=== PATIENT | female | born 1955 | race Caucasian/White ===

== ENCOUNTER 2019-02-11 10:30 | Outpatient (RCR) | payer OTHER, SELFPAY ==
--- NOTE | 2019-01-23 14:11 | HP.OTEVAL_ITS ---
Patient's Visit Information SEAN SIMEON is a 64 year old F, referred to Occupational Therapy by ED KEANE, with a diagnosis of Dislocation R Ring Finger. Date of Evaluation: 01/21/19 Occupational Therapist: Jenise Mendoza - Subjective Subjective: Pt seen for initial occupational therapy evaluation for dislocation R Ring finger that occured 01/11/19 when fell on hardwood floor and dislocated R RF PIP joint. Pt seen by [facility] Dr. Keane, provided order to guillermina tape R RF and start early AROM and PROM. Pt L hand dominent. Completes a lot of typing and plays guitar and piano for hobbies. Pt states piano is in storage for time being. Pt states has been guillermina taping hand daily. Pt indep with BADLs/IADLs. - Pain R Ring Finger 1 Pain Intensity Range: 0, 5 - Objective Objective/Observation: limited AROM R RF -8 RF, edema R RF - ROM ROM Comments: R MP 0/82' PIP -5/78' DIP 0/4'. L MP 0/86' PIP 0/105' DIP 0/40' - Strength Oil Paint Shader: R 30# L 72# Tripod Pinch: R 10#, L 11# - Edema Other: Slight Edema noted R RF - Sensation Sensation Comments: No numbness or tingling - Quick DASH-Disab of Arm,Shoulder& Hand Quick DASH Score: 15.9075 - Goals Goal:: Pt will progress w/ R RF PIP flexion 20' to assist with functional living tasks indep by d/c from OT services. Pt will progress w/ R RF PIP extension by 5' by d/c from OT services Goal:: Pt will demo no pain greater than 0/10 R RF w/ movement by d/c from OT services Goal:: Pt will be educated on tools/strategies to assist w/ edema control with good understanding and demo 100%x Goal:: Pt will be educated on R hand HEP with good understanding and demo 100%x - Rehabilitation General Assessment: Pt demo increased edema R RF, increased pain with movement of R RF and limited AROM R RF and strength of R hand. Pt would benefit from direct occupational therapy servcies to increase R RF ROM, decrease edema, decrease pain and increase strength when appropriate to increase pts ability to return to PLOF. Rehabilitation Potential: Excellent - Anticipated Interventions Anticipated Interventions: A/AAROM/PROM, Strengthening, Edema Control, Modalities, Orthoses, Joint Protection/Energy Conservation, Fine Motor Coord/Jorje, ADL Training, Education re Diagnosis, Education re Self-Bandaging Techniques, Education re Correct Donning Tech,Care&Wearing Sched Comp Garments, Home Program - Visit Plan Frequency: 1-2x /Week Duration: 4 Weeks General Plan: increase ROM R RF, decreased edema, educate on R UE HEP, decrease pain TEXT: Thank you for the opportunity to evaluate your patient. For Medicare and Medicare HMO plans, please review the plan of care and approve it. It will need to be FAXED BACK to us at [phone] for Medicare purposes. Please let me know if there are questions or concerns regarding this plan of care. Physician Signature:____ Date:
--- NOTE | 2019-07-16 14:12 | HP.OT.NRP ---
HP - Discharge Summary - Patient Information SEAN SIMEON was seen in my office for initial evaluation on 01/21/19. The following Plan of Care was established for this patient: Initial Frequency: 1-2x /Week Initial Duration: 4 Weeks Plan: cont w/ prior POC - Anticipated Interventions Anticipated Interventions: A/AAROM/PROM, Strengthening, Edema Control, Modalities, Orthoses, Joint Protection/Energy Conservation, Fine Motor Coord/Jorje, ADL Training, Education re Diagnosis, Education re Self-Bandaging Techniques, Education re Correct Donning Tech,Care&Wearing Sched Comp Garments, Home Program This patient was last seen in our office 02/11/19. Pertinent comments regarding their Occupational therapy will appear below: Pt last seen for dislocation R IF. Pt doing well and no return to OT. D/C OT POC At this point I will be discontinuing this patient from occupational therapy. I would be happy to see this patient again in the future if found appropriate by the physician. Thank you! Jenise Mendoza
== END 2019-02-11 19:00 | disposition home or self-care (01) ==
LOC: OT 10:30
DX: S63.279D Dislocation of unspecified interphalangeal joint of unspecified finger, subsequent encounter (principal)
CPT/HCPCS: 97035; 97110; 97165; 97166; 97530; 97760

== ENCOUNTER → 2020-05-07 | Outpatient (CLI) | payer OTHER, SELFPAY ==
[2020-05-07 15:18] LABS: Absolute Lymphocyte Count 2.85 X10^3/uL (0.83-4.51); Absolute Neutrophil Count 3.2 X10^3/uL (2.0-7.7); Basophil# 0.06 X10^3/uL; Basophil% 0.9 % (0-1); Eosinophil# 0.26 X10^3/uL; Eosinophils% 3.9 % (0-5); Hematocrit 41.1 % (37-47); Hemoglobin 12.5 g/dL (12.0-15.0); Lymphocyte # 2.85 X10^3/ul (4.0); Lymphocyte % 42.2 % (19-41); Mean Corp Hgb Conc 30.4 g/dL (32-36); Mean Corpuscular Hgb 28.5 pg (27.0-32.0); Mean Corpuscular Volume 93.6 fL (81-99); Mean Platelet Vol. 11.2 fl (6.2-12.0); Monocyte# 0.42 X10^3/uL; Monocyte% 6.2 % (0-10); NRBC Flagged by Analyzer 0 % (0-5); Neutrophil # 3.15 X10^3/uL (2.7-7.7); Neutrophil % 46.7 % (47-70); Platelet Count 282 K/mm3 (150-450); Red Blood Count 4.39 M/mm3 (4.2-5.4); White Blood Count 6.8 K/mm3 (4.4-11.0)
[2020-05-07 16:02] LABS: ALB/GLOB Ratio 0.8 RATIO (0.9-2.4); AST(SGOT) 23 U/L (15-37); Alanine Aminotransfer ALT/SGPT 28 U/L (13-56); Albumin, Serum 3.4 g/dL (3.2-5.0); Alkaline Phosphatase 59 U/L (45-117); Anion Gap 2 (5-15); BUN 12 mg/dL (7-18); BUN/Creat Ratio 15.1 RATIO (10-20); Calcium,Total 8.8 mg/dL (8.5-10.1); Chloride 107 mmol/L (98-107); Creatinine, Serum 0.79 mg/dL (0.55-1.02); EST Glomerular Filtration Rate 77 mL/min (>60); Est Glom Filt Rate - Afr Amer 93 mL/min (>60); Ferritin 24 ng/mL (8-252); Globulin 4.2 g/dL (2.2-4.2); Glucose 85 mg/dL (74-106); Magnesium 2.2 mg/dL (1.6-2.6); Protein, Total 7.6 g/dL (6.4-8.2); Sodium Level 142 mmol/L (136-145)
== END | disposition home or self-care (01) ==
LOC: MTLAB 13:54
PROVIDERS: PCP Family Medicine; Referring Provider Family Medicine; Visit Provider Family Medicine
DX: M81.0 Age-related osteoporosis without current pathological fracture (principal); F43.29 Adjustment disorder with other symptoms; Z86.2 Personal history of diseases of the blood and blood-forming organs and certain disorders involving the immune mechanism
CPT/HCPCS: 36415; 80053; 82728; 83735; 85025

== ENCOUNTER → 2020-06-16 08:50 | Outpatient (CLI) | payer OTHER, SELFPAY ==
--- NOTE | 2020-06-16 08:58 | BD_ITS ---
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 COMPARISON: None. FINDINGS: Lumbar Spine (L1-L4): g/cm2 (1.027) / T-score (-1.2) / Z-score (0.4) Findings are suggestive of osteopenia with a low fracture risk. Left Femur Total: g/cm2 (0.733) / T-score (-2.2) / Z-score (-0.9) Left Femoral Neck: g/cm2 (0.695) / T-score (-2.5) / Z-score (-0.9) Right Femur Total: g/cm2 (0.700) / T-score (-2.4) / Z-score (-1.1) Right Femoral Neck: g/cm2 (0.664) / T-score (-2.7) / Z-score (-1.1) BD/Dexa Bone Density Study IMPRESSION: The patient is considered osteoporotic as outlined below according to World Pa Organization (WHO) criteria with a high fracture risk. Reference Information: The T-score is the number of standard deviations above or below the standard which is normal for young adults at their peak bone mineral density. The World Health Organization (WHO) interprets the T-scores as follows: Above -1 Normal bone density Between -1 and -2.5 Osteopenia Equal to / or below -2.5 Osteoporosis As a practical clinical guideline, osteopenia may be graded as follows: Mild -1 through -1.5 Moderate -1.6 through -2.0 Severe -2.1 through -2.4 The Z-score is the number of standard deviations above or below age-matched controls. A Z-score of less than -1.5 would be considered abnormal. References: 1. NIH Osteoporosis and Related Bone Diseases www osteo.org 2. International Society for Clinical Densitometry www iscd.org 3. National Osteoporosis Foundation www nof.org Electronically Signed: Herman Tirado, at 9:30 EST , Service support ,
== END ==
PROVIDERS: PCP Family Medicine; Referring Provider Family Medicine; Visit Provider Family Medicine
DX: M81.0 Age-related osteoporosis without current pathological fracture (principal)
CPT/HCPCS: 77080

== ENCOUNTER → 2021-03-04 | Outpatient (CLI) | payer OTHER, SELFPAY | END | disposition home or self-care (01) | LOC: MFPLAB 10:54 → LABSPEC 10:54 | PROVIDERS: PCP Family Medicine; Referring Provider Family Medicine; Visit Provider Family Medicine | DX: J06.9 Acute upper respiratory infection, unspecified (principal) | CPT/HCPCS: 87635; U0005; U0003 ==

== ENCOUNTER → 2023-06-05 | Outpatient (CLI) | payer BC, SELFPAY ==
[2023-06-05 08:23] LABS: Absolute Lymphocyte Count 3.42 X10^3/uL (0.83-4.51); Absolute Neutrophil Count 3.1 X10^3/uL (2.0-7.7); Basophil# 0.05 X10^3/uL; Basophil% 0.6 % (0-1); Eosinophil# 0.57 X10^3/uL; Eosinophils% 7.3 % (0-5); Hematocrit 36.3 % (37-47); Hemoglobin 11.1 g/dL (12.0-15.0); Lymphocyte # 3.42 X10^3/ul (0.83-4.51); Mean Corp Hgb Conc 30.6 g/dL (32-36); Mean Corpuscular Hgb 25.8 pg (27.0-32.0); Mean Corpuscular Volume 84.2 fL (81-99); Mean Platelet Vol. 10.8 fl (6.2-12.0); Monocyte# 0.62 X10^3/uL; NRBC Flagged by Analyzer 0 % (0-5); Neutrophil # 3.09 X10^3/uL (2.7-7.7); Neutrophil % 39.8 % (47-70); Platelet Count 319 K/mm3 (150-450); RBC Distribution Width CV 18.1 % (11.6-14.6); RBC Distribution Width SD 55.8 fl (35.1-43.9); Red Blood Count 4.31 M/mm3 (4.2-5.4); White Blood Count 7.8 K/mm3 (4.4-11.0)
[2023-06-05 08:59] LABS: ALB/GLOB Ratio 0.7 RATIO (0.9-2.4); AST(SGOT) 35 U/L (15-37); Alanine Aminotransfer ALT/SGPT 53 U/L (13-56); Albumin, Serum 3.1 g/dL (3.2-5.0); Alkaline Phosphatase 76 U/L (45-117); Anion Gap 3 (5-15); BUN 18 mg/dL (7-18); BUN/Creat Ratio 18.3 RATIO (10-20); Calcium,Total 8.7 mg/dL (8.5-10.1); Chloride 108 mmol/L (98-107); Cholesterol 221 mg/dL (200); Creatinine, Serum 0.98 mg/dL (0.55-1.02); EST Glomerular Filtration Rate 59 mL/min (>60); Est Glom Filt Rate - Afr Amer 72 mL/min (>60); Globulin 4.2 g/dL (2.2-4.2); Glucose 107 mg/dL (74-106); High Density Lipoprotein 71 mg/dL; Potassium 4.2 mmol/L (3.5-5.1); Protein, Total 7.3 g/dL (6.4-8.2); Sodium Level 141 mmol/L (136-145); Triglycerides 154 mg/dL; Very Low Density Lipoprotein 31 mg/dL (5-40)
== END | disposition home or self-care (01) ==
PROVIDERS: PCP Family Medicine; Referring Provider Family Medicine; Visit Provider Family Medicine
DX: Z00.00 Encounter for general adult medical examination without abnormal findings (principal); M81.0 Age-related osteoporosis without current pathological fracture; M54.50 Low back pain, unspecified
CPT/HCPCS: 36415; 80053; 80061; 85025

== ENCOUNTER 2023-08-16 07:11 | Day surgery (SDC) | payer BC, SELFPAY ==
--- OUTSIDE RECORDS SUMMARY | 2023-08-16 07:24 | XMS RPT_ITS | CCD ---
Author Name Unknown Address [address] [place] [address] Organization [facility] Care Team Providers Care Hairmasters Manager Name Role Phone Carolann Cruz Unavailable Unavailable PROVIDER, UNKNOWN Unavailable Unavailable Carolann Cruz Unavailable Unavailable Jabari Malin MD Primary Care Provider [phone] JABARI MALIN Primary Care Unavailable Allergies Allergy Classification Reported Allergen(s) Allergy Type Date of Onset Reaction(s) Facility (2 sources) Citalopram; Translations: [CITALOPRAM] Drug Allergy 11-30-2016 Other: See Comments [facility] Medications Completed/Discontinued Medications Medication Drug Class(es) Dates Sig (Normalized) Sig (Original) [id number] 200 actuat albuterol 0.09 mg/actuat metered dose inhaler (1 source) beta2-Adrenergic Agonist Start: 11-20-2019 take 2 puff(s) by inhalation every four hours as needed albuterol HFA (PROAIR HFA) 90 mcg/actuation inhaler Indications: Cough Inhale 2 Puffs as instructed every 4 hours as needed. 1 Inhaler 0 11/20/2019 Active Problems Active Problems Problem Classification Problem Date Documented Date Episodic/Chronic Esophageal disorders (1 source) Gastroesophageal reflux disease; Translations: [Gastro-esophageal reflux disease without esophagitis] 07-24-2017 Chronic Osteoporosis (2 sources) Age-related osteoporosis without current pathological fracture; Translations: [Age-related osteoporosis w/o current pathological fracture] Onset: 05-24-2018 Chronic Other bone disease and musculoskeletal deformities (2 sources) Other specified disorders of bone density and structure, unspecified site; Translations: [Oth disrd of bone density and structure, unspecified site] Onset: 05-24-2018 Episodic Other upper respiratory disease (1 source) Allergic rhinitis; Translations: [Allergic rhinitis, unspecified] 07-24-2017 Chronic Residual codes; unclassified (1 source) Family history of cancer of colon; Translations: [Family history of malignant neoplasm of digestive organs] 07-24-2017 Episodic Past or Other Problems Problem Classification Problem Date Documented Date Episodic/Chronic Joint disorders and dislocations; trauma-related (1 source) Dislocation of digit of hand; Translations: [Dislocation of unspecified interphalangeal joint of unspecified finger, subsequent encounter] Onset: 01-15-2019 02-19-2019 Episodic Nonmalignant breast conditions (1 source) Lump in upper inner quadrant of left breast; Translations: [Unspecified lump in the left breast, upper inner quadrant] Onset: 11-07-2019 11-07-2019 Episodic Other screening for suspected conditions (not mental disorders or infectious disease) (1 source) Breast finding ; Translations: [Inconclusive mammogram] Onset: 11-07-2019 11-07-2019 Episodic Other upper respiratory disease (1 source) Dysphonia; Translations: [Unspecified voice and resonance disorder] Onset: 08-20-2008 08-20-2008 Episodic Results Test Name Value Interpretation Reference Range Facil ity Encounters Encounter Date Encounter Type Care Provider Facility Start: 09-11-2022 Documentation procedure Mammog mack Coordinator [facility] Start: 09-11-2022 Letter encounter Mammography Coordinator [facility] Department Start: 09-08-2022 End: 09-08-2022 ambulatory JABARI MALIN Facility:[facility] Start: 05-24-2018 Patient encounter [facility] Procedures Date Procedure Procedure Detail Performing Clinician Start: 09-08-2022 Mammography Mammograph y Coordinator Start: 06-21-2018 Colonoscopy Mammograph y Coordinator Plan of Treatment Date Care Activity Detail Author Start: 08-12-2025 Urine microalbumin profile DTA P,TDAP,TD (3 - Td or Tdap) [facility] Start: 09-08-2023 Mammography MAMMOGRAM [facility] Start: 06-21-2023 Colonoscopy COLONOSCOPY [facility] Start: 06-21-2023 COLORECTAL CANCER SCREENING COLORECTAL CANCER SCREENING [facility] Start: 12-04-2022 LIPID SCREEN LIPID SCREEN [facility] Start: 08-13-2022 ADVANCE DIRECTIVE DISCUSSION ADVANCE DIRECTIVE DISCUSSION [facility] Start: 08-13-2022 DEPRESSION ASSESSMENT DEPRESSION ASS ESSMENT [facility] Start: 12-04-2020 DIABETES SCREEN DIABETES SCREEN [facility] Start: 1998 COLOGUARD (FIT-DNA) COLOGUARD (FIT-D NA) [facility] Start: [address] COLONOGRAPHY [facility] Start: 1998 FECAL OCCULT BLOOD FECAL OCCULT BLOO D [facility] Start: 1998 [facility] Start: 1955 COVID-19 VACCINE (#1) COVID-19 VACCI NE (#1) [facility] Immunizations Immunization Date Immunization Notes Care Provider Fa cility 06-05-2020 influenza, high-dose , quadrivalent vaccine (FLUZONE HIGH DOSE QUADRIVALENT) Mammography Coordinator [facility] 01-07-2020 zoster vaccine recombinant Mammography Coordinator [facility] Work Phone: 10-07-2019 zoster vaccine recombinant Mammography Coordinator [facility] 08-08-2019 pneumococcal polysaccharide vaccine, 23 valent Mammography Coordinator [facility] 05-22-2019 influenza, injectabl e, quadrivalent, preservative free Mammography Coordinator [facility] 07-10-2018 influenza, seasonal, injectable, preservative free Mammography Coordinator [facility] 07-10-2018 pneumococcal conjuga te vaccine, 13 valent Mammography Coordinator [facility] 02-19-2018 hepatitis A vaccine, adult dosage Mammography Coordinator [facility] 07-24-2017 hepatitis A vaccine, adult dosage Mammography Coordinator [facility] 08-12-2015 tetanus toxoid, redu gerhard diphtheria toxoid, and acellular pertussis vaccine, adsorbed Mammography Coordinator [facility] 03-05-2012 hepatitis B vaccine, adult dosage Mammography Coordinator [facility] 04-18-2011 hepatitis B vaccine, adult dosage Mammography Coordinator [facility] 03-06-2011 hepatitis B vaccine, adult dosage Mammography Coordinator [facility] 07-06-2006 tetanus toxoid, redu gerhard diphtheria toxoid, and acellular pertussis vaccine, adsorbed Mammography Coordinator [facility] Payers Date Payer Category Payer Unknown [employer] PPO [id number] 2021-Present [phone] [id number] [place] [address] PPO [id number] 2021 Unknown [id number] 2017 Medicare MEDICARE LYNDAAR Griselda Mendosa [id number] 2017-Present [phone] [address] [place] [address] Medicare [id number] 1955 Unknown [id number] Private Health Insurance Social History Date Type Detail Facility Start: 11-30-2016 Tobacco smoking stat us CTIS Never smoked tobacco [facility] Start: 11-30-2016 Tobacco use and exposure Smoke less tobacco non-user [facility] Start: 06-18-2020 Alcohol intake Current drinke r of alcohol (finding) [facility] Start: 06-18-2020 Alcohol intake [facility] Start: 01-15-2019 Alcohol Comment [facility] Start: 1955 Sex Assigned At Female [facility] Note 09-11-2022 Letter - Mammography Coordinator - 09/11/2022 11:40 AM EST Note Date & Type Note Facility 09-11-2022 Miscellaneous Notes Formattin g of this note might be different from the original. September 12, 2022 PID: [id number] Sonja [facility] [address] [place] [address] Dear Jarred Donis, We are pleased to inform you that the results of your recent breast imaging exam on 09/08/2022 are normal. Your mammogram demonstrates that you have dense breast tissue, which could hide abnormalities. Dense breast tissue, in and of itself, is a relatively common condition. Therefore, this information is not provided to cause undue concern; rather, it is to raise your awareness and promote discussion with your health care provider regarding the presence of dense breast tissue in addition to other risk factors. Early detection of cancer is very important. We also understand recommendations regarding breast cancer screening are controversial. Please discuss with your primary care provider which strategy is best for you and whether a mammogram is right for you. Your imaging studies and report will be kept on file at [facility] as part of your permanent medical record and are available for your continuing care. Thank you for allowing us to help in meeting your health care needs. Sincerely, Dr. Linares Interpreting Radiologist [facility] (Normal over 40) documented in this encounter [facility] History of Past illness Narrative 07-24-2017 Note Date & Type Note Facility documented as of this encounter (statuses as of 09/13/2022) [facility] Summary Purpose Family History No Family History Records FoundNo Family History Records FoundNo Family History Records FoundNo Family History Records FoundNo Family History Records Found Advance Directives No Advanced Directives Records FoundNo Advanced Directives Records FoundNo Advanced Directives Records FoundNo Advanced Directives Records FoundNo Advanced Directives Records Found Additional Source Comments INFORMATION SOURCE (unrecogn ized section and content) DATE CREATED AUTHOR AUTHOR'S ORGANIZ ATION 06/11/2020 [facility] DATE CREATED AUTHOR AUTHOR'S ORGANIZ ATION 06/18/2020 [facility] DATE CREATED AUTHOR AUTHOR'S ORGANIZ ATION 06/19/2020 [facility] DATE CREATED AUTHOR AUTHOR'S ORGANIZ ATION 09/14/2022 [facility] Source Comments (unrecognize d section and content) In the event this informatio n is protected by the Federal Confidentiality of Alcohol and Drug Abuse Patient Records regulations: The Federal rules restrict any use of the information to criminally investigate or prosecute any alcohol or drug abuse patient.[facility] Care Teams (unrecognized sec tion and content) FOR RECORDS PERTAINING TO PATIENTS WHO ARE OR HAVE BEEN ENROLLED IN A CHEMICAL DEPENDENCY/SUBSTANCEABUSE PROGRAM, SOME INFORMATION MAY BE OMITTED. This clinical summary was aggregated from multiple sources. Caution should be exercised in using it in the provision of clinical care. This summary normalizes information from multiple sources, and as a consequence, information in this document may materially change the coding, format and clinical context of patient data. In addition, data may be omitted in some cases. CLINICAL DECISIONS SHOULD BE BASED ON THE PRIMARY CLINICAL RECORDS. [facility]. provides no warranty or guarantee of the accuracy or completeness of information in this document.
--- NOTE | 2023-08-16 07:31 | PCM.HP.STD ---
HPI - General General Date of Admission: 08/16/23 Date of Service: 08/16/23 Chief Complaint: Screening colonoscopy HPI Narrative SEAN SIMEON, is a 68 F who presents today for screening colonoscopy. She has a positive family history of colon cancer in her father that was diagnosed in his 50s. She had a years ago. She is not having problems with her bowels. She does have a history gastroesophageal reflux disease and takes Lantus on a daily basis. Overall she is in very good health. [facility] Medical History Alcohol use Anemia Asthma Depression Family hx of colon cancer Gastric reflux GERD (gastroesophageal reflux disease) Hay fever Major depressive disorder, recurrent, mild Non-smoker Osteoporosis Wears glasses Home Medications lansoprazole 15 mg capsule,delayed release 30 mg PO DAILY 05/06/22 [History Last Taken Unknown] [id number]-[id number] 250 mg-dha 90 mg-epa 160 ii-vkvr-byrn-zeax capsule (Ocuvite Adult 50 Plus) 1 cap PO DAILY 05/06/22 [History Last Taken Unknown] fexofenadine 180 mg tablet 180 mg PO DAILY 05/11/23 [History Last Taken Unknown] multivitamin with iron 1 tab PO DAILY 05/11/23 [History Last Taken Unknown] syringe with needle 1 mL 27 gauge x 3/8 (Allergy Syringe) 05/11/23 [History Last Taken Unknown] vilazodone 20 mg tablet (Viibryd) 20 mg PO DAILY 05/11/23 [History Last Taken Unknown] Allergy/AdvReac Type Severity Reaction Status Date / Time grass pollen Allergy Unknown itch,nasal Verified 08/16/23 07:25 and lung irritation, hives cat dander Allergy itch,hives,nasal Verified 08/16/23 07:25 and lung irritation house dust mite Allergy itch,hives,nasal Verified 08/16/23 07:25 and lung irritation Family History Father Colon cancer, Onset Age: 50 Recovered after colectomy/colostomy Other Cancer Hypertension Surgical History H/O: hysterectomy Hx of colonoscopy Social History household members: spouse current occupational status: employed current occupation: [employer] Professor Smoking Status: Never smoker alcohol intake: current alcohol intake frequency: 0-2 drinks per day ROS Review of Systems ROS Unobtainable: other Constitutional Constitutional: Denies fatigue, fever(s), poor appetite, weight gain or weight loss ENT HEENT: Denies mouth lesions Cardiovascular Cardiovascular: Denies abdominal bloating, abdominal edema or abdominal pain Respiratory/Chest Respiratory/Chest: Denies change in mental status, change in phlegm color, chest congestion or chest tightness Gastrointestinal Gastrointestinal: Denies belching, bloating, change in bowel habits, change in stool character, chewing difficulty, coffee ground emesis, constipation, cramping, diarrhea, dyspepsia, dysphagia, early satiety, excessive flatus, fecal incontinence, heartburn, hematemesis, hematochezia, hemorrhoids, loose stools, melena, nausea, odynophagia, rectal bleeding, tenesmus, vomiting or weight changes Genitourinary Genitourinary: Denies abdominal discomfort, burning urination or itching Musculoskeletal Musculoskeletal: Reports as per HPI; Denies muscle weakness or myalgias Integumentary Integumentary: Denies jaundice Neurologic Neurologic: Denies lack of coordination or weakness Psychiatric Psychiatric: Denies confusion, depression, memory loss, mood swings, paranoia or suicidal ideation Endocrine Endocrinology: Denies systems reviewed and no addt'l complaints, except as documented Hematologic/Lymphatic Hematologic/Lymphatic: Denies anemia, easy bleeding, easy bruising or lymphadenopathy Allergic/Immunologic Allergic/Immunologic: Denies systems reviewed and no addt'l complaints, except as documented Physical Exam Const alert General Appearance: cooperative Orientation / Consciousness: oriented to person HEENT hearing grossly normal bilaterally Head and Scalp: normal to inspection Face and Sinus: face symmetric Nose: external nose normal Mouth: oral and palatal mucosa normal Eyes conjunctivae normal General Eye: normal appearance of both eyes Neck full ROM General: normal visual inspection Lymph Lymphatic: no lymphadenopathy noted Chest inspection of chest normal and palpation of chest normal Chest: symmetrical chest wall rise Resp normal respiratory effort Effort and Inspection: able to speak in complete sentences Cardio regular rate GI non-distended Percussion: normal to percussion Rectal Exam: deferred Neuro Speech: speech normal Gait (Neuro): normal gait Assessment & Plan Assessment/Plan (1) Encounter for screening for malignant neoplasm of colon: PLAN: She was explained alternatives, risk, benefits including outstanding bleeding, infection, sepsis, perforation, need for mergers and . She will have an ASA of 3.
[2023-08-16] MEDS: Lactated Ringers 1,000 ML 15 ML IV (07:42)
[2023-08-16 07:43] VITALS: BP 114/66; PULSE 70; RESP 17; TEMP 36.3; O2SAT 98; BMI 29.2
[2023-08-16 08:50] VITALS: BP 114/66; BP 95/63; PULSE 60; RESP 16; TEMP 36.3; O2SAT 96
--- NOTE | 2023-08-16 08:52 | OP.COLON_ITS ---
Patient Name: Sonja Donis Procedure Date: 08/16/2023 8:24 AM Date of : 1955 Age: 68 Procedure: Colonoscopy Indications: Screening in patient at increased risk: Family history of 1st-degree relative with colorectal cancer before age 60 years Providers: Michael Wright DO Medicines: Monitored Anesthesia Care Patient Profile: This is a 68 year old female. Refer to note in patient chart for documentation of history and physical. Last Colonoscopy: 5 years ago. Complications: No immediate complications. Procedure: Pre-Anesthesia Assessment: - Prior to the procedure, a History and Physical was performed, and patient medications and allergies were reviewed. The risks and benefits of the procedure and the sedation options and risks were discussed with the patient. All questions were answered and informed consent was obtained. Patient identification and proposed procedure were verified by the physician in the pre-procedure area. Mental Status Examination: alert and oriented. Airway Examination: normal oropharyngeal airway and neck mobility. Respiratory Examination: clear to auscultation. CV Examination: normal. Prophylactic Antibiotics: The patient does not require prophylactic antibiotics. Prior Anticoagulants: The patient has taken no anticoagulant or antiplatelet agents. After reviewing the risks and benefits, the patient was deemed in satisfactory condition to undergo the procedure. The anesthesia plan was to use monitored anesthesia care (MAC). Immediately prior to administration of medications, the patient was re-assessed for adequacy to receive sedatives. The heart rate, respiratory rate, oxygen saturations, blood pressure, adequacy of pulmonary ventilation, and response to care were monitored throughout the procedure. The physical status of the patient was re-assessed after the procedure. After I obtained informed consent, the scope was passed under direct vision. Throughout the procedure, the patient's blood pressure, pulse, and oxygen saturations were monitored continuously. The pediatric colonoscope was introduced through the anus and advanced to the cecum, identified by appendiceal orifice and ileocecal valve. The colonoscopy was performed without difficulty. The patient tolerated the procedure well. The quality of the bowel preparation was adequate. The ileocecal valve, appendiceal orifice, and rectum were photographed. Scope In: 8:35:13 AM Scope Withdrawal Time 0 hours 7 minutes 9 seconds Scope Out: 8:46:49 AM Total Procedure Duration Time 0 hours 11 minutes 36 seconds Findings: The perianal and digital rectal examinations were normal. A few small-mouthed diverticula were found in the recto-sigmoid colon. The exam was otherwise without abnormality on direct and retroflexion views. Impression: - Diverticulosis in the recto-sigmoid colon. - The examination was otherwise normal on direct and retroflexion views. - No specimens collected. Recommendation: - Discharge patient to home. - Resume previous diet. - Continue present medications. - Repeat colonoscopy in 5 years for screening purposes. Procedure Code(s): --- Professional --- G0105, Colorectal cancer screening; colonoscopy on individual at high risk CPT copyright 2021 [employer]. All rights reserved. The codes documented in this report are preliminary and upon sewing machine repairer review may be revised to meet current compliance requirements. Michale Wright DO 08/16/2023 8:52:12 AM This report has been signed electronically. Number of Addenda: 0 Note Initiated On: 08/16/2023 8:24 AM
--- NOTE | 2023-08-16 08:53 | OP.CCLET_ITS ---
08/16/2023 Jarvis Malin [address] [place] [address] Re : Colonoscopy procedure for Sonja Donis Dear Dr. Malin This procedure was performed on August. My impressions and recommendations are as follows: Impressions : - Diverticulosis in the recto-sigmoid colon. - The examination was otherwise normal on direct and retroflexion views. - No specimens collected. Recommendations : - Discharge patient to home. - Resume previous diet. - Continue present medications. - Repeat colonoscopy in 5 years for screening purposes. My findings are described in the full procedure note, which is enclosed. If I can be of further assistance, please feel free to contact me at . Sincerely, Michael Wright, 08/16/2023 8:52:12 AM This report has been signed electronically.
[2023-08-16 08:55] VITALS: BP 104/66; BP 114/66; PULSE 61; RESP 16; O2SAT 98
[2023-08-16 09:00] VITALS: BP 110/69; BP 114/66; PULSE 60; RESP 16; O2SAT 99
[2023-08-16 09:10] VITALS: BP 106/69; BP 114/66; PULSE 61; RESP 16; TEMP 36.4; O2SAT 98
[2023-08-16 09:20] VITALS: BP 114/66
== END 2023-08-16 09:41 | disposition home or self-care (01) ==
LOC: EN 07:14 → AC 07:14
PROVIDERS: PCP Family Medicine; Referring Provider Family Medicine; Visit Provider Internal Medicine Gastroenterology
PROC: 0DJD8ZZ Inspection of Lower Intestinal Tract, Via Natural or Artificial Opening Endoscopic (ICD-10-PCS; CPT 45378; principal; 2023-08-16 08:10)
DX: Z12.11 Encounter for screening for malignant neoplasm of colon (principal); K21.9 Gastro-esophageal reflux disease without esophagitis; Z80.0 Family history of malignant neoplasm of digestive organs; K57.90 Diverticulosis of intestine, part unspecified, without perforation or abscess without bleeding; J45.909 Unspecified asthma, uncomplicated
CPT/HCPCS: 45378; J7120; J2405

== ENCOUNTER 2024-08-12 08:36 | Outpatient (CLI) | payer MEDICARE, OTHER, SELFPAY ==
[2024-08-12 12:33] LABS: PTHIN 73.7 pg/mL (18.4-80.1)
[2024-08-12 12:37] LABS: Vitamin D,25 Hydroxy 21.1 ng/mL
[2024-08-12 12:41] LABS: Hemoglobin A1c 5.9 % (3.8-5.6)
[2024-08-12 12:53] LABS: ALB/GLOB Ratio 0.8 RATIO (0.9-2.4); AST(SGOT) 53 U/L (15-37); Alanine Aminotransfer ALT/SGPT 72 U/L (13-56); Albumin, Serum 3.1 g/dL (3.2-5.0); Alkaline Phosphatase 88 U/L (45-117); Anion Gap 6 (5-15); BUN 17 mg/dL (7-18); BUN/Creat Ratio 19.3 RATIO (10-20); Calcium,Total 8.6 mg/dL (8.5-10.1); Chloride 109 mmol/L (98-107); Cholesterol 242 mg/dL (200); Creatinine, Serum 0.88 mg/dL (0.55-1.02); EST Glomerular Filtration Rate 67 mL/min (>60); Est Glom Filt Rate - Afr Amer 81 mL/min (>60); Glucose 99 mg/dL (74-106); High Density Lipoprotein 80 mg/dL; Potassium 4.3 mmol/L (3.5-5.1); Protein, Total 7.1 g/dL (6.4-8.2); Sodium Level 140 mmol/L (136-145); Triglycerides 113 mg/dL; Very Low Density Lipoprotein 23 mg/dL (5-40)
== END 2024-08-12 23:59 | disposition home or self-care (01) ==
PROVIDERS: PCP Family Medicine
DX: Z13.1 Encounter for screening for diabetes mellitus (principal); F32.5 Major depressive disorder, single episode, in full remission; M81.0 Age-related osteoporosis without current pathological fracture; Z13.220 Encounter for screening for lipoid disorders
CPT/HCPCS: 36415; 80053; 80061; 82306; 83036; 83970; 84443

== ENCOUNTER → 2024-09-04 | Outpatient (CLI) | payer MEDICARE, OTHER, SELFPAY ==
--- NOTE | 2024-09-04 15:45 | BI_ITS ---
MAMMOGRAPHY - BILATERAL SCREENING REASON FOR EXAM: Female, 69 years old. Routine annual screening examination. PERTINENT HISTORY: Non-contributory. TECHNIQUE: Digital bilateral breast frederick (3D mammographic acquisition) in the CC and MLO projections. 2-D mediolateral oblique (MLO) and craniocaudad (CC) views of both breasts were obtained. CAD: Full Field Digital Mammography with Computer Added Detection was performed. COMPARISON: Comparison is made with prior outside examination dated September 08, 2022. FINDINGS: Breast Composition: The breasts are extremely dense, which lowers the sensitivity of mammography. There are no dominant masses or suspicious calcifications. Small bilateral axillary lymph nodes. No other significant abnormalities are identified. There has been no significant change since the prior study. BI/SCRN MAMM (CAD)W/FREDERICK BILAT IMPRESSION: Stable bilateral screening mammogram. Yearly follow-up mammogram recommended. (A) ASSESSMENT CATEGORY: BIRADS Category 2: Benign. A letter regarding these results will be sent to the patient by the facility within 30 days. Approximately 10% of breast cancers are not detected by mammography. A normal mammogram should not delay biopsy of a clinically suspicious abnormality. [id number] Electronically Signed: Herman Tirado MD at 14:08 EST ,
--- NOTE | 2024-09-04 15:45 | BD_ITS ---
STUDY: DUAL ENERGY X-RAY ABSORPTIOMETRY / DXA REASON FOR EXAM: Female, 69 years old. 627.8Menopausal postmenopausal BONE DENSITY REASON FOR EXAM TECHNIQUE: Bone Mineral Density (BMD) measurements of lumbar spine and bilateral hips were obtained. COMPARISON: Comparison is made with prior study of June 16, 2020. FINDINGS: Lumbar Spine (L1-L4): g/cm2 (0.853) / T-score (-1.8) / Z-score (0.4) Findings are suggestive of osteopenia with a moderate fracture risk. Left Femur Total: g/cm2 (0.738) / T-score (-1.7) / Z-score (-0.1) Left Femoral Neck: g/cm2 (0.538) / T-score (-2.8) / Z-score (-0.9) Right Femur Total: g/cm2 (0.665) / T-score (-2.3) / Z-score (-0.7) Right Femoral Neck: g/cm2 (0.551) / T-score (-2.7) / Z-score (-0.8) The T-Scores on the most recent prior examination were: Lumbar Spine (L1-L4): There has been worsening of bone density since the previous examination. Left Femur Total: which represents an improvement of 9.3%. Right Femur Total: which represents an improvement of 3.4%. BD/Dexa Bone Density Study IMPRESSION: The patient is considered osteoporotic as outlined below according to World Pa Organization (WHO) criteria with a high fracture risk. There has been improvement of bone density since the previous examination. Reference Information: The T-score is the number of standard deviations above or below the standard which is normal for young adults at their peak bone mineral density. The World Health Organization (WHO) interprets the T-scores as follows: Above -1 Normal bone density Between -1 and -2.5 Osteopenia Equal to / or below -2.5 Osteoporosis As a practical clinical guideline, osteopenia may be graded as follows: Mild -1 through -1.5 Moderate -1.6 through -2.0 Severe -2.1 through -2.4 The Z-score is the number of standard deviations above or below age-matched controls. A Z-score of less than -1.5 would be considered abnormal. References: 1. NIH Osteoporosis and Related Bone Diseases www osteo.org 2. International Society for Clinical Densitometry www iscd.org 3. National Osteoporosis Foundation www nof.org Electronically Signed: Herman Tirado MD at 14:18 EST ,
== END | disposition home or self-care (01) ==
LOC: OPBD 15:44
PROVIDERS: PCP Family Medicine
DX: Z12.31 Encounter for screening mammogram for malignant neoplasm of breast (principal); Z78.0 Asymptomatic menopausal state; Z13.820 Encounter for screening for osteoporosis; M81.0 Age-related osteoporosis without current pathological fracture
CPT/HCPCS: 77063; 77067; 77080